=== PATIENT | male | born 1965 | race Hispanic/Latino ===

== ENCOUNTER 2021-02-04 18:33 | Inpatient (IN) | payer SELFPAY ==
[2021-02-04] MEDS ORDERED: Ketorolac Tromethamine 30 MG/ML VIAL ONE (20:48)
[2021-02-04] MEDS ORDERED: Acetaminophen 500 MG TAB ONE (20:48)
[2021-02-04] MEDS ORDERED: Ondansetron PF 4 MG/2 ML Vial ONE (20:48)
[2021-02-04 21:09] LABS: ALT (SGPT) 39 U/L (8-55); AST (SGOT) 39 U/L (5-34); Albumin 3.7 g/dL (3.5-5.0); Alkaline Phosphatase 118 U/L (40-110); Anion Gap 24 mmol/L (10-20); BUN (Urea Nitrogen) 8 mg/dL (8.4-25.7); Bilirubin, Total 0.4 mg/dL (0.2-1.2); Calc. Creatinine Clearance 0 mL/min (70-130); Calcium 9.2 mg/dL (7.8-10.44); Carbon Dioxide 17 mmol/L (22-29); Chloride 93 mmol/L (98-107); Globulin 4.3 g/dL (2.4-3.5); Glucose 526 mg/dL (70-105); Potassium 4.1 mmol/L (3.5-5.1); Sodium 130 mmol/L (136-145)
[2021-02-04 21:10] LABS: Hemoglobin 12.2 g/dL (14.0-18.0); Mean Corpuscular HGB CONC 33.9 g/dL (32.0-36.0); Mean Corpuscular Hemoglobin 32.8 pg (27.0-31.0); Mean Corpuscular Volume 96.9 fL (78.0-98.0); Red Blood Cell (RBC) Count 3.72 mill/uL (4.70-6.10); White Blood Cell (WBC) Count 5.4 thou/uL (4.8-10.8)
[2021-02-04 21:15] LABS: Band 13 % (5-11); Eosinophils 5 % (0-10); Lymphocytes 26 % (21-51); MDiff Complete? YES; Mean Platelet Volume 7.4 fL (7.4-10.4); Monocytes 17 % (0-10); Neutrophil 39 % (42-75); Platelet Count 200 thou/uL (130-400)
[2021-02-04 22:48] LABS: SARS-CoV-2 NAA Rapid Test Not Detected (NotDetected)
[2021-02-04] MEDS ORDERED: Ampicillin/Sulbactam 3 GM in Sodium Chloride 0.9% 100 ML IVPB SCH (23:30)
[2021-02-05] MEDS ORDERED: Insulin Regular 300 UNITS/3 ML VIAL ONE (00:15)
[2021-02-05] MEDS ORDERED: Dextrose 50% Abboject 50 ML SYRINGE SLOW IVP PRN ×2 (01:51→15:37)
[2021-02-05] MEDS ORDERED: Dextrose 5% in Water 1,000 ML IV PRN ×2 (01:51→15:37)
[2021-02-05] MEDS ORDERED: Acetaminophen 650 MG Suppository PR PRN (01:54)
[2021-02-05] MEDS ORDERED: Ondansetron PF 4 MG/2 ML Vial IVP PRN (01:54)
[2021-02-05] MEDS ORDERED: Sodium Chloride 0.9% 1,000 ML IV SCH (02:00)
[2021-02-05] MEDS ORDERED: Pantoprazole 40 MG VIAL IVP SCH ×2 (02:00→09:00)
[2021-02-05] MEDS ORDERED: Pantoprazole 40 MG VIAL ONE (02:32)
[2021-02-05 04:10] VITALS: BMI 22.4
[2021-02-05 04:41] LABS: Hemoglobin 11.6 g/dL (14.0-18.0); Mean Corpuscular HGB CONC 35.3 g/dL (32.0-36.0); Mean Corpuscular Hemoglobin 34.3 pg (27.0-31.0); Mean Corpuscular Volume 97.1 fL (78.0-98.0); Mean Platelet Volume 7.3 fL (7.4-10.4); Platelet Count 195 thou/uL (130-400); RBC Distribution Width 12.9 % (11.5-14.5); Red Blood Cell (RBC) Count 3.39 mill/uL (4.70-6.10); White Blood Cell (WBC) Count 4.9 thou/uL (4.8-10.8)
[2021-02-05 05:10] LABS: Hemoglobin A1c 13.5 % (4.0-6.0)
[2021-02-05 05:14] LABS: Anion Gap 23 mmol/L (10-20); BUN (Urea Nitrogen) 6 mg/dL (8.4-25.7); Calc. Creatinine Clearance 61 mL/min (70-130); Calcium 7.9 mg/dL (7.8-10.44); Carbon Dioxide 14 mmol/L (22-29); Chloride 102 mmol/L (98-107); Glucose 304 mg/dL (70-105); Potassium 3.5 mmol/L (3.5-5.1); Sodium 135 mmol/L (136-145)
[2021-02-05] MEDS: Ampicillin/Sulbactam 3 GM in Sodium Chloride 0.9% 100 ML IVPB SCH ×3 (06:23→22:16)
[2021-02-05 06:45] LABS: Band 12 % (5-11); Eosinophils 1 % (0-10); Lymphocytes 18 % (21-51); MDiff Complete? YES; Monocytes 12 % (0-10); Neutrophil 57 % (42-75)
[2021-02-05] MEDS: HumaLOG 300 UNITS/3 ML VIAL SC PRN ×2 (06:51→22:17)
[2021-02-05] MEDS ORDERED: D5 1/2 NS w/20 mEq KCL 1,000 ML IV PRN (09:19)
[2021-02-05] MEDS ORDERED: Dextrose 5 %-0.45 % NaCl 1,000 ML IV PRN (09:19)
[2021-02-05] MEDS ORDERED: Sodium Chloride 0.9% 1,000 ML IV PRN ×4 (09:19)
[2021-02-05] MEDS ORDERED: Electrolyte Replacement Protocol 1 EACH IVPB SCH (09:19)
[2021-02-05] MEDS ORDERED: NS 0.9% w/ 20 MEQ KCL 1,000 ML IV PRN ×2 (09:19)
[2021-02-05] MEDS ORDERED: HUMULIN R 100 UNITS in Sodium Chloride 0.9% 100 ML IVPB SCH (09:30)
[2021-02-05 10:12] LABS: Anion Gap 21 mmol/L (10-20); BUN (Urea Nitrogen) 5 mg/dL (8.4-25.7); Calc. Creatinine Clearance 63 mL/min (70-130); Calcium 7.6 mg/dL (7.8-10.44); Carbon Dioxide 15 mmol/L (22-29); Chloride 102 mmol/L (98-107); Glucose 278 mg/dL (70-105); Potassium 3.4 mmol/L (3.5-5.1); Sodium 135 mmol/L (136-145)
[2021-02-05] MEDS ORDERED: INSULIN REGULAR IN 0.9 % NACL 100 UNIT/100 ML BAG ONE (10:48)
[2021-02-05] MEDS ORDERED: NS 0.9% w/ 20 MEQ KCL 1,000 ML ONE (10:55)
[2021-02-05] MEDS ORDERED: Potassium Chloride 20 MEQ TAB PO SCH (13:15)
[2021-02-05] MEDS ORDERED: D5 1/2 NS w/20 mEq KCL 1,000 ML ONE (13:34)
[2021-02-05 13:47] LABS: Anion Gap 20 mmol/L (10-20); BUN (Urea Nitrogen) 5 mg/dL (8.4-25.7); Calc. Creatinine Clearance 78 mL/min (70-130); Calcium 7.2 mg/dL (7.8-10.44); Carbon Dioxide 16 mmol/L (22-29); Chloride 104 mmol/L (98-107); Glucose 145 mg/dL (70-105); Potassium 3.3 mmol/L (3.5-5.1); Sodium 137 mmol/L (136-145)
[2021-02-05] MEDS ORDERED: Dextrose 5%-Lactated Ringers 1,000 ML IV SCH (15:45)
[2021-02-05 16:40] LABS: Anion Gap 19 mmol/L (10-20); BUN (Urea Nitrogen) 4 mg/dL (8.4-25.7); Calc. Creatinine Clearance 78 mL/min (70-130); Carbon Dioxide 18 mmol/L (22-29); Chloride 102 mmol/L (98-107); Glucose 229 mg/dL (70-105); Potassium 3.3 mmol/L (3.5-5.1); Sodium 136 mmol/L (136-145)
[2021-02-05] MEDS ORDERED: Sodium Chloride 0.9% (PF) 10 ML VIAL FS PRN (16:45)
[2021-02-05] MEDS ORDERED: Potassium Chloride 20 MEQ TAB ONE (17:09)
[2021-02-05 18:31] LABS: Anion Gap 18 mmol/L (10-20); BUN (Urea Nitrogen) Less than 4 mg/dL (8.4-25.7); Calc. Creatinine Clearance 83 mL/min (70-130); Calcium 7.1 mg/dL (7.8-10.44); Carbon Dioxide 19 mmol/L (22-29); Chloride 101 mmol/L (98-107); Glucose 191 mg/dL (70-105); Potassium 3.4 mmol/L (3.5-5.1); Sodium 135 mmol/L (136-145)
[2021-02-06] MEDS: Ampicillin/Sulbactam 3 GM in Sodium Chloride 0.9% 100 ML IVPB SCH ×5 (00:07→21:47)
[2021-02-06] MEDS: HumaLOG 300 UNITS/3 ML VIAL SC PRN ×4 (04:59→17:40)
[2021-02-06 05:42] LABS: Anion Gap 26 mmol/L (10-20); BUN (Urea Nitrogen) 4 mg/dL (8.4-25.7); Calc. Creatinine Clearance 75 mL/min (70-130); Calcium 7.3 mg/dL (7.8-10.44); Carbon Dioxide 14 mmol/L (22-29); Chloride 101 mmol/L (98-107); Glucose 233 mg/dL (70-105); Potassium 3.9 mmol/L (3.5-5.1); Sodium 137 mmol/L (136-145)
[2021-02-06] MEDS: Pantoprazole 40 MG VIAL IVP SCH (07:28)
[2021-02-06] MEDS ORDERED: Pantoprazole 40 MG VIAL IVP SCH (09:00)
[2021-02-06] MEDS: Lantus 1000 UNITS/10 ML VIAL SC SCH (10:23)
[2021-02-06] MEDS: Acetaminophen 650 MG/20.3 ML UDCUP PO PRN (10:51)
[2021-02-06] MEDS ORDERED: Levothyroxine Sodium 75 MCG TAB PO SCH (11:00)
[2021-02-06 13:40] LABS: Anion Gap 16 mmol/L (10-20); BUN (Urea Nitrogen) 5 mg/dL (8.4-25.7); Calc. Creatinine Clearance 68 mL/min (70-130); Calcium 7.6 mg/dL (7.8-10.44); Carbon Dioxide 21 mmol/L (22-29); Chloride 100 mmol/L (98-107); Glucose 339 mg/dL (70-105); Potassium 3.2 mmol/L (3.5-5.1); Sodium 134 mmol/L (136-145)
[2021-02-06] MEDS ORDERED: Potassium Chloride 20 MEQ TAB PO SCH (14:00)
[2021-02-06] MEDS: metFORMIN 500 MG TAB PO SCH (17:38)
[2021-02-06] MEDS: Gabapentin 100 MG CAP PO SCH (20:06)
[2021-02-07] MEDS: HumaLOG 300 UNITS/3 ML VIAL SC PRN ×4 (02:02→17:13)
[2021-02-07] MEDS: Levothyroxine Sodium 75 MCG TAB PO SCH (04:59)
[2021-02-07] MEDS: Ampicillin/Sulbactam 3 GM in Sodium Chloride 0.9% 100 ML IVPB SCH ×4 (04:59→22:58)
[2021-02-07 05:37] LABS: Anion Gap 13 mmol/L (10-20); BUN (Urea Nitrogen) 6 mg/dL (8.4-25.7); Calc. Creatinine Clearance 96 mL/min (70-130); Calcium 7.8 mg/dL (7.8-10.44); Carbon Dioxide 26 mmol/L (22-29); Chloride 102 mmol/L (98-107); Glucose 194 mg/dL (70-105); Potassium 3.5 mmol/L (3.5-5.1); Sodium 137 mmol/L (136-145)
[2021-02-07] MEDS ORDERED: Potassium Chloride 20 MEQ TAB PO SCH (06:00)
[2021-02-07] MEDS: Pantoprazole 40 MG VIAL IVP SCH (08:43)
[2021-02-07] MEDS: Lantus 1000 UNITS/10 ML VIAL SC SCH (08:44)
[2021-02-07] MEDS: metFORMIN 500 MG TAB PO SCH ×2 (08:44→17:13)
[2021-02-07] MEDS: Acetaminophen 650 MG/20.3 ML UDCUP PO PRN (10:31)
[2021-02-07] MEDS: Gabapentin 100 MG CAP PO SCH (20:11)
[2021-02-08] MEDS: Ampicillin/Sulbactam 3 GM in Sodium Chloride 0.9% 100 ML IVPB SCH ×3 (04:08→17:40)
[2021-02-08] MEDS: Acetaminophen 650 MG/20.3 ML UDCUP PO PRN (04:24)
[2021-02-08 05:37] LABS: Iron 88 ug/dL (65-175); Iron Binding Capacity, Total 204 mcg/dL (261-462)
[2021-02-08 05:39] LABS: Anion Gap 13 mmol/L (10-20); BUN (Urea Nitrogen) 7 mg/dL (8.4-25.7); Calc. Creatinine Clearance 121 mL/min (70-130); Calcium 8.1 mg/dL (7.8-10.44); Carbon Dioxide 25 mmol/L (22-29); Chloride 103 mmol/L (98-107); Glucose 191 mg/dL (70-105); Iron 87 ug/dL (65-175); Potassium 3.6 mmol/L (3.5-5.1); Sodium 137 mmol/L (136-145)
[2021-02-08 06:00] LABS: Ferritin 1448.09 ng/mL (22-322)
[2021-02-08] MEDS: Levothyroxine Sodium 75 MCG TAB PO SCH (06:22)
[2021-02-08] MEDS: metFORMIN 500 MG TAB PO SCH ×2 (07:13→17:42)
[2021-02-08] MEDS: Lantus 1000 UNITS/10 ML VIAL SC SCH (07:13)
[2021-02-08] MEDS: Pantoprazole 40 MG VIAL IVP SCH (07:52)
[2021-02-08] MEDS ORDERED: Folic Acid 1 MG TAB PO SCH (09:45)
[2021-02-08] MEDS ORDERED: Fentanyl 100 MCG/2 ML VIAL ONE (10:24)
[2021-02-08] MEDS ORDERED: PROPOFOL 200 MG/20 ML VIAL ONE (10:51)
[2021-02-08] MEDS ORDERED: Lidocaine 1% PF 5 ML VIAL ONE (10:51)
[2021-02-08] MEDS: Gabapentin 100 MG CAP PO SCH (20:13)
[2021-02-08] MEDS: HumaLOG 300 UNITS/3 ML VIAL SC PRN (20:14)
[2021-02-09] MEDS: HumaLOG 300 UNITS/3 ML VIAL SC PRN ×2 (00:57→12:22)
[2021-02-09 05:08] LABS: Anion Gap 14 mmol/L (10-20); BUN (Urea Nitrogen) 8 mg/dL (8.4-25.7); Calc. Creatinine Clearance 129 mL/min (70-130); Calcium 8.3 mg/dL (7.8-10.44); Carbon Dioxide 25 mmol/L (22-29); Chloride 100 mmol/L (98-107); Glucose 179 mg/dL (70-105); Potassium 3.8 mmol/L (3.5-5.1); Sodium 135 mmol/L (136-145)
[2021-02-09] MEDS: Lantus 1000 UNITS/10 ML VIAL SC SCH (07:48)
[2021-02-09] MEDS: Pantoprazole 40 MG VIAL IVP SCH (07:51)
[2021-02-09] MEDS: Levothyroxine Sodium 75 MCG TAB PO SCH (07:52)
[2021-02-09] MEDS: metFORMIN 500 MG TAB PO SCH (07:52)
[2021-02-09] MEDS ORDERED: Folic Acid 1 MG TAB PO SCH (09:00)
[2021-02-09] MEDS ORDERED: Lisinopril 5 MG TAB PO SCH (09:00)
[2021-02-09] MEDS ORDERED: Sodium Chloride 0.9% 1,000 ML IV SCH ×2 (12:15→14:15)
[2021-02-09] MEDS: Acetaminophen 650 MG/20.3 ML UDCUP PO PRN (12:22)
[2021-02-09 15:53] VITALS: BP 108/73
[2021-02-09 16:22] VITALS: TEMP 97.6
== END 2021-02-09 16:20 | disposition home or self-care (01) | DRG 392 ==
LOC: ERS 18:33 → ERHOLD 23:59 → OBSVTOIN 02-05 08:17 → EDBD 02-05 08:17 → 2SE 02-05 19:58
PROVIDERS: ADMIT Internal Medicine; ATTEND Internal Medicine
PROC: 0DB78ZX Excision of Stomach, Pylorus, Via Natural or Artificial Opening Endoscopic, Diagnostic (ICD-10-PCS; principal; 2021-02-08)
DX: K29.50 Unspecified chronic gastritis without bleeding (principal); N17.9 Acute kidney failure, unspecified; E87.1 Hypo-osmolality and hyponatremia; E03.9 Hypothyroidism, unspecified; E11.42 Type 2 diabetes mellitus with diabetic polyneuropathy; E11.65 Type 2 diabetes mellitus with hyperglycemia; E86.0 Dehydration; D64.9 Anemia, unspecified; Z20.822 Contact with and (suspected) exposure to COVID-19; Z89.421 Acquired absence of other right toe(s); Z86.16 Personal history of COVID-19
CPT/HCPCS: 36415; 36416; 70450; 70551; 71045; 74230; 80048; 80053; 82010; 82607; 82728; 82746; 83036; 83540; 83550; 84443; 84484; 85025; 88305; 88342; 93005; 96365; 96366; 96375; 96376; C9113; G0378; J0295; J1815; J1885; J2405; J2704; J3010; J3480; J3490; U0002; U0005